=== PATIENT | female | born 1990 | race Caucasian/White ===

== ENCOUNTER 2016-04-13 05:17 | Inpatient (IN) | payer MEDICAID ==
--- OUTSIDE RECORDS SUMMARY | 2016-04-13 05:22 | XMS REPORT | Continuity of Care Document ---
:1990 Author Organization [facility] ([facility]) Address [address] [place] [address] Phone [phone] Care Team Providers Name Role Phone Hyacinth Kyle Primary Care Provider [phone] Source Comments This disclosure is being made pursuant to the Care Everywhere program, applicable federal and state laws, and may not contain all informaitonavailable regarding this patient.[facility] ([facility]) Active Allergies and Adverse Reactions No Known Allergies Current Medications Prescription Sig. Disp. Refills Start Date End Date Status multivitamin with Active minerals PO ondansetron 8 mg tablet Take 8 mg by mouth Active every 8 hours as needed. Active Problems Problem Noted Date Obesity affecting 11/28/2015 Abnormal maternal serum screening test 11/28/2015 Currently Estimated Date of Delivery Comments Yes 04/24/2016 Based on Ultrasound Most Recent Encounters Date Type Specialty Providers Description 03/06/2016 Office Visit Maternal Chief Comp: Patient Medicine Reported Reason For Visit 01/16/2016 Office Visit Maternal Dacia Anderson Dx: Abnormal Medicine DO maternal serum screening test (Primary Dx) 01/16/2016 Hospital Encounter Obstetrics Dacia Anderson Dx: Abnormal DO maternal serum screening test Social History Tobacco Use Types Packs/Day Years Used Date Former Smoker Smokeless Tobacco: Never Used Alcohol Use Drinks/Week oz/Week Comments No Last Filed Vital Signs Vital Sign Reading Time Taken Blood Pressure 150/78 11/22/2015 10:18 AM CDT Pulse - - Temperature 34.8 C (94.6 F) 11/22/2015 10:18 AM CDT Respiratory Rate - - Height 1.65 m (5' 4.96") 11/22/2015 10:18 AM CDT Weight 126.1 kg (278 lb) 11/22/2015 10:18 AM CDT Body Mass Index 46.32 11/22/2015 10:18 AM CDT Oxygen Saturation - - Plan of Care Health Maintenance Due Date Last Done Comments Hepatitis B Vaccine (1 of 3 - Primary Series) 1990 HPV Vaccine (1 of 3 - Female/Unknown 3 Dose Series) 05/09/2002 Tdap Vaccine 05/09/2002 Cervical Cancer Screening 05/09/2009 Lipid Disorder Screening 05/09/2009 MMR Vaccine 05/09/2009 Td Vaccine 05/09/2009 Varicella Vaccine (1 of 2 - Adult - No Evidence of 05/09/2009 Immunity) Influenza Vaccine: Seasonal (#1) 09/17/2015 Results from Last 3 Months SOFTWARE TEST TECHNICIAN/ DIAGNOSIS ULTRASOUND (01/16/2016 1:38 PM) Narrative Obstetric Ultrasound Report Limited Scan Referral from: Dr. Ronak Storey [facility] [address] Department of Obstetrics & Gynecology [place] [address] [place], [place] OB Clinic IVF/ Endocrine PATIENT INFORMATION: Name: VALE VASQUEZMR#: [id number] Age:25 y/oExam Date: 01/16/2016 :1990 Visit #: 3 LMP:Not Available Location: Diagnosis & Treatment Unit # Fetuses: 1 INDICATION:AFP 5.12 MoM. Negative CF testing. Declined amniocentesis. Obesity (BMI=46). Growth and complete anatomy. DATING: Assigned GA GA by LMPGA by US (JAMARI)JAMARI NA 25 5/7 wks 25 6/7 wks 04/24/16 BIOMETRY: BPD: 59.4 mm24 2/7 wksHC:235.9 mm 25 4/7 wks(25%) (9%) Femur: 50.9 mm27 2/7 wksAC:218.9 mm 26 2/7 wks(53%) (73%) EFW: 949 gms2 lbs 1 oz (67%) Lat Ventricles: 7.2 mm Heart Rate: 144 bpm FL/AC:0.23 FL/BPD: 0.86 PRESENTATION/CORD/PLACENTA/FLUID/CERVIX: Presentation: Cephalic Placenta: Posterior.There Is No Evidence Of Placenta Previa. Amniotic Fluid: Maximum Vertical Pocket=47 mm.Subjective AF Volume : Normal. (LBK=257 mm) ANATOMICAL SURVEY: Normal ------ Lateral Ventricles Profile Four Chamber ViewRVOT LVOT IVC SVC Diaphragm Ventral Wall Stomach Kidney - LeftKidney - Right BladderHand - Left Foot - LeftFoot - Right Abnormal -------- None identified TARGETED CARDIAC: IVC: Normal SVC: Normal EFW Summary Table Exam DateFetus #EFW Percentile ------ - 01/16/16 1 66980 % 16289 % 260 % AMNIOTIC FLUID VOLUME: NORMALTotal AUGUSTINA: 123 mm.Subjective AF Volume: Normal. Maximum Vertical Pocket:47 mm CERVIX: Suboptimal visualization COMMENTS: I attest to having personally viewed the images and my comments and impression are as follows: The exam was limited to growth, fluid and limited anatomy. IUP consistent with given JAMARI. Appropriate amniotic fluid. The anatomical survey was completed on today's ultrasound. Follow up at 30-32 weeks to check growth. Consultation: As you know, Vale Vasquez is a 25 y.o. currently at 25w6d gestation. She had been referred initally due to elevated AFP on serum screening - 5.12 MoM. Her is complicated by maternal class III obesity. Low risk serum screening - DSR and T18 < 1:99,000. She presented to the Diagnosis and Treatment Unit at the [facility] several weeks ago for genetics consultation, detailed anatomic survey and MFM consultation.At that time, no congenital anomalies were detected.She was counseled that the most common etiologies of an elevated MSAFP include open neural tube defects, anterior abdominal wall defects, placental abnormalities, bleeding in or incorrect dating. She was informed that an isolated finding of elevated MSAFP can be associated with labor, intrauterine growth restriction and preeclampsia based upon a subclinical to maternal hemorrhage and poor placentation. Given these risks, the patient was recommended to have routine care with surveillance for these potential complications. Her repeat US today was again limited by maternal habitus; however, no structural anomalies were detected. The patient again declined invasive testing. Given the significant MSAFP elevation, I recommend q 4 week ultrasounds for growth and to further assess anatomy. In addition, close follow up of maternal blood pressures as well as NSTs/BPPs in the later third trimester are appropriate. I also recommend she take a low dose aspirin daily for preeclampsia prevention. After relaying the ultrasound results to the patient, I spent an additional 10 minutes with the patient reviewing the follow up plan and recommendations with greater than 50% of that time used in direct counseling and coordination of care. Dr. Dacia Anderson MD ([id number]) Clinical Systems Educator: Michell Rodgers RDMS,RVT Procedure Note Jaskaran, Incoming Imaging Results - ThuJan 16, 2016 1:40 PM PUMPING SUPERVISOR Obstetric Ultrasound Report Limited Scan Referral from: Dr. Ronak Storey [facility] [address] Department of Obstetrics &[place] [address] [address] [place], [place] OB Clinic IVF/ Endocrine PATIENT INFORMATION: Name: VALE VASQUEZ MR#: [id number] Age: 25 y/o Exam Date: 01/16/2016 : 1990 Visit #: 3 LMP: Not Available Location: Diagnosis & Treatment Unit # Fetuses: 1 INDICATION: AFP 5.12 MoM. Negative CF testing. Declined amniocentesis. Obesity (BMI=46). Growth and complete anatomy. DATING: Assigned GA GA by LMP GA by US (JAMARI) JAMARI NA 25 5/7 wks 25 6/7 wks 04/24/16 BIOMETRY: BPD: 59.4 mm 24 2/7 wks HC: 235.9 mm 25 4/7 wks(25%) (9%) Femur: 50.9 mm 27 2/7 wks AC: 218.9 mm 26 2/7 wks(53%) (73%) EFW: 949 gms 2 lbs 1 oz (67%) Lat Ventricles: 7.2 mm Heart Rate: 144 bpm FL/AC: 0.23 FL/BPD: 0.86 PRESENTATION/CORD/PLACENTA/FLUID/CERVIX: Presentation: Cephalic Placenta: Posterior. There Is No Evidence Of Placenta Previa. Amniotic Fluid: Maximum Vertical Pocket=47 mm. Subjective AFVolume: Normal. (NQA=363 mm) ANATOMICAL SURVEY: Normal ------ Lateral Ventricles Profile Four Chamber View RVOT LVOT IVC SVC Diaphragm Ventral Wall Stomach Kidney - Left Kidney - Right Bladder Hand - Left Foot - Left Foot - Right Abnormal -------- None identified TARGETED CARDIAC: IVC: Normal SVC: Normal EFW Summary Table Exam Date Fetus # EFW Percentile --------- ------- ---- 01/16/16 1 949 67 % 12/19/15 1 468 49 % 11/22/15 1 260 % AMNIOTIC FLUID VOLUME: NORMAL Total AUGUSTINA: 123 mm. Subjective AF Volume: Normal. Maximum Vertical Pocket: 47 mm CERVIX: Suboptimal visualization COMMENTS: I attest to having personally viewed the images and my comments and impression are as follows: The exam was limited to growth, fluid and limited anatomy. IUP consistent with given JAMARI. Appropriate amniotic fluid. The anatomical survey was completed on today's ultrasound. Follow up at 30-32 weeks to check growth. Consultation: As you know, Vale Vasquez is a 25 y.o. currently at 25w6d gestation. She had been referred initally due to elevated AFP on serum screening - 5.12 MoM. Her is complicated by maternal classIII obesity. Low risk serum screening - DSR and T18 < 1:99,000. She presented to the Diagnosis and Treatment Unit at the [facility] several weeks ago for genetics consultation, detailed anatomic survey and MFM consultation. At that time, no congenital anomalieswere detected. She was counseled that the most common etiologies of an elevated MSAFP include open neural tube defects, anterior abdominalwall defects, placental abnormalities, bleeding in or incorrect dating. She was informed that an isolated finding of elevated MSAFP can be associated with labor, intrauterine growth restriction and preeclampsia based upon a subclinical to maternal hemorrhage and poor placentation. Given these risks, the patient was recommended to have routine care with surveillance for these potential complications. Her repeat US today was again limited by maternal habitus; however, no structural anomalies were detected. The patient again declined invasive testing. Given the significant MSAFP elevation, I recommend q 4 week ultrasounds for growth and to further assess anatomy. In addition,close follow up of maternal blood pressures as well as NSTs/BPPs in the later third trimester are appropriate. I also recommend she take a low dose aspirin daily for preeclampsia prevention. After relaying the ultrasound results to the patient, I spent an additional 10 minutes with the patient reviewing the follow up plan and recommendations with greater than 50% of that time used in direct counseling and coordination of care. Dr. Dacia Anderson MD ([id number]) Clinical Systems Educator: Michell Rodgers RDMS,RVT
[2016-04-13] MEDS: RINGERS SOLUTION,LACTATED 1,000 ML IV PRN ×3 (06:00→10:05)
[2016-04-13] MEDS ORDERED: DEXTROSE 5%-LACTATED RINGERS 1,000 ML IV PRN ×2 (06:03→07:25)
--- OUTSIDE RECORDS SUMMARY | 2016-04-13 06:06 | XMS REPORT | Continuity of Care Document ---
:1990 Author Organization [facility] ([facility]) Address [address] [place] [address] Phone [phone] Care Team Providers Name Role Phone Hyacinth Kyle Primary Care Provider [phone] Source Comments This disclosure is being made pursuant to the Care Everywhere program, applicable federal and state laws, and may not contain all informaitonavailable regarding this patient.[facility] ([facility]) Active Allergies and Adverse Reactions No Known [...] (#1) 09/17/2015 Results from Last 3 Months EFFICIENCY CLERK/ DIAGNOSIS ULTRASOUND (01/16/2016 1:38 PM) Narrative Obstetric Ultrasound Report Limited Scan Referral from: Dr. Ronak Storey [facility] [address] Department of Obstetrics & Gynecology [place] [address] [place], [place] OB Clinic IVF/ Endocrine PATIENT INFORMATION: Name: VALE VASQUEZMR#: [id number] Age:25 y/oExam Date: 01/16/2016 :1990 Visit #: [...] Vertical Pocket=47 mm.Subjective AF Volume : Normal. (EST=478 mm) ANATOMICAL SURVEY: Normal ------ Lateral Ventricles Profile Four Chamber ViewRVOT LVOT IVC SVC Diaphragm Ventral Wall Stomach Kidney - LeftKidney - Right BladderHand - Left Foot - LeftFoot - Right Abnormal -------- None identified TARGETED CARDIAC: IVC: Normal SVC: Normal EFW Summary Table Exam DateFetus #EFW Percentile ------ - 01/16/16 1 90414 % 33415 % 260 % AMNIOTIC FLUID VOLUME: NORMALTotal [...] the Diagnosis and Treatment Unit at the [facility] several weeks ago for genetics [...] of care. Dr. Dacia Anderson MD ([id number]) Pole Peeler: Michell Rodgers RDMS,RVT Procedure Note Jaskaran, Incoming Imaging Results - ThuJan 16, 2016 1:40 PM [facility] Obstetric Ultrasound Report Limited Scan Referral from: Dr. Ronak Storey [facility] [address] Department of Obstetrics &[place] [address] [address] [place], [place] OB Clinic IVF/ Endocrine PATIENT INFORMATION: Name: VALE VASQUEZ MR#: [id number] Age: 25 y/o Exam Date: 01/16/2016 : [...] Maximum Vertical Pocket=47 mm. Subjective AFVolume: Normal. (VNL=468 mm) ANATOMICAL SURVEY: Normal ------ Lateral Ventricles [...] the Diagnosis and Treatment Unit at the [facility] several weeks ago for genetics consultation, detailed [...] of care. Dr. Dacia Anderson MD ([id number]) Pole Peeler: Michell Rodgers RDMS,RVT
[2016-04-13] MEDS ORDERED: OXYTOCIN/DEXTROSE 5%-WATER 30 UNITS/500 ML BAG IV ONE (06:12)
[2016-04-13 06:24] LABS: Hematocrit 39.5 % (37.0-47.0); Hemoglobin 13.2 gm/dL (12.5-16.0); Mean Cell Volume 81.6 fl (78-100); Mean Corpuscular Hemoglobin 27.3 pg (27-31); Mean Corpuscular Hgb Conc 33.4 g/dl (32-36); Mean Platelet Volume 10.9 fl (6.0-9.5); Neutrophil % 59.7 % (42-75.0); Platelet Count 252 K/mm3 (150-450); Red Blood Count 4.84 M/mm3 (4.2-5.4); Red Cell Distribution Width 13.2 % (11.5-14.0); White Blood Count 13.4 K/mm3 (4.0-10.5)
[2016-04-13 06:39] LABS: Random Urine Total Protein 76.7 mg/dL (0-12)
[2016-04-13 06:40] LABS: Albumin * 2.4 gm/dl (3.4-5.0); Anion Gap 15.6 mmol/L (6.8-13.8); BUN/Creatinine Ratio 12.9 (9.0-21.6); Bilirubin, Total 0.2 mg/dL (0.0-1.1); Ca. Corrected For Albumin 10.7 mg/dL (8.4-10.2); Calcium * 9.7 mg/dL (7.9-10.9); Carbon Dioxide 23.3 mmol/L (24-32.6); Potassium 3.9 mmol/L (3.4-4.6); Total Protein 6.9 gm/dL (6.2-8.2)
[2016-04-13] MEDS: DEXTROSE 5%-LACTATED RINGERS 1,000 ML IV PRN ×3 (08:30→14:10)
[2016-04-13] MEDS ORDERED: LIDOCAINE HCL 50 ML VIAL PERI PRN (08:47)
[2016-04-13] MEDS ORDERED: ONDANSETRON HCL/PF 2 MG/ML VIAL IV PRN ×2 (08:47→09:21)
--- NOTE | 2016-04-13 08:47 | PN ---
Progess Note - Interim Narrative: 04/13/16 08:43 Patient rating her contractions 8/10. Saw flashes of light 1 currently without any symptoms. Vital signs stable. Pitocin at 6 mu/min. FHT: 130 baseline, reassuring Contractions q 1-5 min, with couplets Cervix: 4/80/-2, SROM at 0500 clear fluid Impression: Intrauterine at 38-5/7 weeks in labor. Preeclampsia with occasional blood pressure in severe range. Plan: Continue augmentation of labor. Epidural when necessary. Monitor I/O's closely. Low threshold for starting magnesium sulfate.
[2016-04-13] MEDS ORDERED: NALOXONE HCL 1 MG/1 ML SYRG IV PRN (09:21)
[2016-04-13] MEDS ORDERED: fentaNYL CITRATE/PF 50 MCG/ML AMPUL IT SCH (09:30)
--- NOTE | 2016-04-13 09:56 | OR ---
Anesthesia Procedure Note - Anesthesia Procedure Note Narrative: Vital Signs - Last Taken Temp 37.2 C 04/13/16 09:23 Pulse 83 04/13/16 09:23 Resp 18 04/13/16 09:23 BP 147/87 04/13/16 09:23 Pulse Ox 98 04/13/16 09:23 04/13/16 09:55 ANESTHESIA PROCEDURE NOTE Date of Procedure: 04/13/2016 Time of procedure: 11 15. Performed by: Marco Wilkerson CRNA Home Health Travel Pt: None. Preprocedure diagnosis: Active labor. Post procedure diagnosis: Same. Procedure: Insertion of labor epidural. Indications: The patient is a 25 -year-old prima para female in active labor requesting labor epidural for pain management. Findings: See below. Details of the procedure: The patient was placed in a sitting position. Back was prepped with DuraPrep. Patient was then draped in a sterile fashion. Lidocaine 1% was infiltrated to the skin and subcutaneous tissues at the level of the L3 4 interspace. The epidural space was identified using a 18-gauge Tuohy needle with [id number] technique. 20 mcg fentanyl was given intrathecally using a 27 ga. spinal needle. Epidural catheter was inserted without difficulty. Negative test dose was elicited using 5 mL of 1.5% preservative-free lidocaine plus epinephrine 1 200,000. The epidural catheter was then taped and secured in place. EBL: Minimal. Fluids: N/A. Specimen: N/A. Post procedure condition: The patient tolerated the procedure well. No complications were noted. Thank you for this consultation. Hernandez CRNA
[2016-04-13] MEDS ORDERED: TERBUTALINE SULFATE 1 MG/ML VIAL ONE (10:03)
[2016-04-13] MEDS ORDERED: TERBUTALINE SULFATE 1 MG/ML VIAL SC ONE (10:05)
[2016-04-13] MEDS: BUPIVACAINE HCL/0.9 % NACL/PF 250 ML EP PRN ×2 (10:48→19:12)
--- NOTE | 2016-04-13 13:20 | PN ---
Progess Note - Interim Narrative: 04/13/16 13:15 Patient comfortable with epidural. No headache, visual changes, or epigastric pain Vital signs stable. BP's 120-150's/60-80's Pitocin at 6 mu/min. FHT: 140 baseline, reassuring Contractions q 2-3 min Cervix: 4/90/-2 Impression: Intrauterine at 38 4/7 weeks in labor Plan: Continue present plan. We'll start on ampicillin 2 g if undelivered by 1700, then 1 g IV every 4 hours until delivery.
[2016-04-13] MEDS ORDERED: AMPICILLIN SODIUM 2,000 MG in NORMAL SALINE 100 ML IV ONE (18:00)
[2016-04-13] MEDS: AMPICILLIN SODIUM 1,000 MG in NORMAL SALINE 100 ML IV SCH (21:37)
[2016-04-14] MEDS: RINGERS SOLUTION,LACTATED 1,000 ML IV PRN ×2 (04:03→06:50)
[2016-04-14] MEDS: BUPIVACAINE HCL/0.9 % NACL/PF 250 ML EP PRN (04:15)
[2016-04-14] MEDS: AMPICILLIN SODIUM 1,000 MG in NORMAL SALINE 100 ML IV SCH (05:28)
[2016-04-14] MEDS ORDERED: RINGERS SOLUTION,LACTATED 1,000 ML IV PRN (06:13)
--- NOTE | 2016-04-14 06:19 | PN ---
Progess Note - Interim Narrative: 04/14/16 06:15 Patient fairly comfortable with epidural Vital signs stable. Pitocin at 20 mu/min. FHT:150 baseline, reassuring Contractions q 2-3 min Cervix: 6/100/-2 with large caput. No cervical change in over 14 hours despite multiple position changes and maximum pitocin augmentation Impression: Intrauterine at 38-5/7 weeks arrest of dilation, prolonged ruptured membranes, morbid obesity, elevated AFP Plan: Risks/benefits/alternatives to section discussed with patient in detail. All questions answered. We'll proceed with primary low transverse section for arrest of dilation.
[2016-04-14] MEDS ORDERED: ceFAZolin SODIUM 3 GM in DEXTROSE 5 % IN WATER 100 ML IV ONE ×2 (06:30)
[2016-04-14] MEDS: OXYTOCIN 20 UNITS in RINGERS SOLUTION,LACTATED 1,000 ML IV ONE ×2 (07:34→07:40)
[2016-04-14] MEDS ORDERED: SENNOSIDES 8.6 MG TABLET PO PRN (08:50)
[2016-04-14] MEDS ORDERED: SIMETHICONE 80 MG TAB.CHEW PO PRN (08:50)
[2016-04-14] MEDS ORDERED: ONDANSETRON HCL/PF 2 MG/ML VIAL IV PRN (08:50)
[2016-04-14] MEDS ORDERED: oxyCODONE HCL/ACETAMINOPHEN 1 TAB TABLET PO PRN (08:50)
[2016-04-14] MEDS ORDERED: BISACODYL 10 MG SUPP.RECT RC PRN (08:50)
--- NOTE | 2016-04-14 08:50 | OR ---
Operative Report - Dictated Report Narrative: Pre Operative Diagnosis: 38-5/7 week intrauterine , arrest of dilation , preeclampsia, morbid obesity, elevated AFP Post Operative Diagnosis: Same. Procedure Preformed: Primary Low Transverse Section Surgeon: Apolinar Storey DO Labor And Employment Paralegal: None Anesthesia: Spinal Estimated Blood Loss: 250 mL Urine Output: 75 mL Fluids Given: Avitene 100 mL Drains: Flood to gravity Surgical Complications: None Specimens: Placenta to pathology Findings: Male in cephalic presentation born at 0738 on 04/13/2015 with Apgars 8 and 9, weighing 3128 g. Extensive molding and caput of head. Normal uterus, tubes, ovaries. Indication: 25 year old 1 para 0 with preeclampsia, elevated AFP, and morbid obesity presented to labor and delivery with spontaneous rupture of membranes in early labor progressed to 6 cm and failed to make further change despite over 16 hours of maximum Pitocin augmentation and multiple position changes. Technique: The patient was taken to the operating room and placed in dorsal supine position with a left lateral tilt. After adequate spinal anesthesia, flood catheter insertion,SCDs placed, and 3 g of Ancef given preoperatively, the abdominal cavity was entered via a modified Albert-Iyer incision. Two rolled laps were placed in the pericolic gutters on either side of the uterus. A transverse incision was made in the lower uterine segment and extended laterally and upwardly with digital traction. Clear fluid was noted upon amniotomy. The infant was delivered easily. The cord was clamped and cut and was handed off to awaiting peditrician. The placenta was allowed to deliver spontaneously. The uterus was cleared of clot and debris. Uterine incision was closed with 0 Vicryl using a running locked stitch. A second imbricating layer was placed. Excellent hemostasis was noted. Rolled laps were removed from the abdominal cavitiy. The peritoneum was closed with a running 3-0 Monocryl. The same suture was used to approximate the rectus and pyramidalis muscles. The fascia was closed with a running 0 Vicryl. The subcutaneous layer was closed with a running 3-0 Monocryl. The same suture was used to approximate the subdermal layer. The skin was closed with a running 4- 0 Monocryl and Exophin adhesive dressing. Sponge, lap, needle, and instrument count were correct x 2. Disposition: The patient was transferred to post anesthesia care unit in good condition History for MU Definition: * The number of deliveries resulting in a live the patient experienced prior to current hospitalization * The previous delivery of live twins or any live multiple gestation is considered one live event. *If primagravida or nulliparous is documented select zero for the number of previous live births. Live Events: 0
[2016-04-14] MEDS: oxyCODONE HCL/ACETAMINOPHEN 1 TAB TABLET PO PRN ×3 (09:24→22:00)
[2016-04-14] MEDS: IBUPROFEN 800 MG TABLET PO PRN ×3 (09:24→22:00)
[2016-04-14] MEDS: DOCUSATE SODIUM 100 MG CAPSULE PO SCH ×2 (13:16→20:57)
[2016-04-14] MEDS: ENOXAPARIN SODIUM 40 MG/0.4 ML SYRG SC SCH (15:52)
--- NOTE | 2016-04-15 02:36 | PN ---
Subjective - Date and Time Seen Date: 04/15/16 Time: 02:33 Objective - Vitals Vitals: Last Vital Signs Temp 36.5 C 04/15/16 00:00 Pulse 100 04/15/16 00:00 Resp 18 04/15/16 00:00 BP 101/59 04/15/16 00:00 Pulse Ox 95 04/15/16 00:00 Patient denies complaints. Tolerating regular diet. Pain well controlled. Lochia wnl. BPs within normal limits, urine output doubling Abdomen - soft, appropriately tender Incision - clean, dry, intact Uterus - firm, at umbilicus -1 No calf tenderness DTR-2/4 Impression: Post op day #1 s/p primary section. Preeclampsia- resolving, morbid obesity Plan: Increase activity, DC Caputo, continue to monitor for preeclampsia signs/ symptoms Cauti Physician Documentation - Urinary Catheter Management Urethral (Caputo) Date of Insertion: 04/13/16 Time of Insertion: 10:08
[2016-04-15] MEDS: oxyCODONE HCL/ACETAMINOPHEN 1 TAB TABLET PO PRN ×3 (04:29→19:53)
[2016-04-15] MEDS: IBUPROFEN 800 MG TABLET PO PRN ×3 (04:30→19:52)
[2016-04-15] MEDS: DOCUSATE SODIUM 100 MG CAPSULE PO SCH ×2 (08:39→20:10)
[2016-04-15] MEDS: ENOXAPARIN SODIUM 40 MG/0.4 ML SYRG SC SCH (15:28)
[2016-04-16] MEDS: IBUPROFEN 800 MG TABLET PO PRN ×2 (04:40→15:57)
--- NOTE | 2016-04-16 07:25 | PN ---
Subjective - Date and Time Seen Date: 04/16/16 Time: 07:24 Objective - Vitals Vitals: Last Vital Signs Temp 37.0 C 04/16/16 00:13 Pulse 73 04/16/16 00:13 Resp 18 04/16/16 00:13 BP 131/61 04/16/16 00:13 Pulse Ox 96 04/16/16 00:13 Patient denies complaints. Ambulating well. Tolerating regular diet. Pain well controlled. Lochia wnl. Abdomen - soft, appropriately tender Incision - clean, dry, intact Uterus - firm, at umbilicus -2 No calf tenderness Impression: Post op day #2 s/p primary section. Preeclampsia-resolved Plan: Continue routine post-operative/ care Cauti Physician Documentation - Urinary Catheter Management Urethral (Caputo) Date of Insertion: 04/13/16 Time of Insertion: 10:08 Date of Removal: 04/15/16 Time of Removal: 02:30
[2016-04-16] MEDS: DOCUSATE SODIUM 100 MG CAPSULE PO SCH ×2 (09:49→21:28)
[2016-04-16] MEDS: oxyCODONE HCL/ACETAMINOPHEN 1 TAB TABLET PO PRN (15:57)
[2016-04-16] MEDS: ENOXAPARIN SODIUM 40 MG/0.4 ML SYRG SC SCH (15:57)
[2016-04-17] MEDS: oxyCODONE HCL/ACETAMINOPHEN 1 TAB TABLET PO PRN ×2 (03:44→09:21)
[2016-04-17] MEDS: IBUPROFEN 800 MG TABLET PO PRN (03:44)
[2016-04-17 08:56] VITALS: BP 136/82
--- NOTE | 2016-04-17 09:03 | PN ---
Subjective - Date and Time Seen Date: 04/17/16 Time: 09: Objective - Vitals Vitals: Last Vital Signs Temp 36.6 C 04/17/16 08:55 Pulse 71 04/17/16 08:55 Resp 12 04/17/16 08:55 BP 136/82 04/17/16 08:55 Pulse Ox 98 04/17/16 08:55 Patient denies complaints. Ambulating without difficulty. Tolerating regular diet. Pain well controlled. Lochia wnl. Abdomen - soft, appropriately tender Incision - clean, dry, intact Uterus - firm, at umbilicus -3 No calf tenderness Impression: Post op day #3 s/p primary section. Preeclampsia-resolved Plan: Routine discharge instructions. Preeclampsia precautions Cauti Physician Documentation - Urinary Catheter Management Urethral (Caputo) Date of Insertion: 04/13/16 Time of Insertion: 10:08 Date of Removal: 04/15/16 Time of Removal: 02:30
[2016-04-17] MEDS: DOCUSATE SODIUM 100 MG CAPSULE PO SCH (09:19)
== END 2016-04-17 11:50 | disposition home or self-care (01) | DRG 765 ==
LOC: OBCLINIC 05:17 → OB 06:02
PROVIDERS: ADMIT Obstetrics & Gynecology; ATTEND Obstetrics & Gynecology
PROC: 4A1H7CZ Monitoring of Products of Conception, Cardiac Rate, Via Natural or Artificial Opening (ICD-10-PCS; 2016-04-14)
PROC: 10D00Z1 Extraction of Products of Conception, Low, Open Approach (ICD-10-PCS; principal; 2016-04-14 07:00)
DX: O14.14 Severe pre-eclampsia complicating childbirth (principal); Z68.43 Body mass index [BMI] 50.0-59.9, adult; O62.0 Primary inadequate contractions; O99.214 Obesity complicating childbirth; E66.01 Morbid (severe) obesity due to excess calories; F81.9 Developmental disorder of scholastic skills, unspecified; Z3A.39 39 weeks gestation of pregnancy; Z37.0 Single live birth; Z79.82 Long term (current) use of aspirin

== ENCOUNTER 2016-11-09 10:50 | Emergency (ER) | payer MEDICAID ==
--- NOTE | 2016-11-09 11:49 | ERNOTE ---
ENT HPI Date of Service: 11/09/16 Time Seen by Provider: 11/09/16 11:20 - Immun/Allergies/Home Medications Immunizations: IMMUNIZATION HX Immunizations Up to Date Yes History of Influenza Vaccine No Allergies/Adverse Reactions: Allergies Allergy/AdvReac Type Severity Reaction Status Date / Time No Known Allergies Allergy Verified 11/09/16 11:00 Home Medications: HOME MEDICATIONS NK [No Home Medication] 11/09/16 [Last Taken Unknown] - History of Present Illness Narrative: Pt presents after awakening with a sore throat. She has had strep throat in the past, usually accompanied by fever. She has no fever today, no nausea, vomiting. Pt was concerned because she has a 7 mo old baby at home. Date (Duration): 11/09/16 Time (Timing): 11:38 Severity: Present: moderate ENT Location: Present: throat Prearrival Treatment: Present: over the counter meds Review of Systems - Review of Systems Constitutional: Absent: fever, chills EYE: Present: no symptoms reported ENT: Present: See HPI, sore throat Respiratory: Present: no symptoms reported Cardiology: Present: no symptoms reported Gastrointestinal/Abdominal: Present: no symptoms reported Genitourinary: Present: no symptoms reported Musculoskeletal: Present: no symptoms reported Skin: Present: no symptoms reported Neurological: Present: no symptoms reported Endocrine: Present: no symptoms reported Hematologic/Lymphatic: Present: no symptoms reported - Patient's Past Medical History Patient History - Medical: No pertinent hx Patient History - Cardiac/Respiratory: No pertinent hx Patient History - Cancer: No Hx of Cancer Patient History - Surgical Procedures: , Ear Tubes Patient History - Other: None - Social History Psych History: Hx of Anxiety, Hx of Depression Smoking Status: Never smoker Have you smoked in the past 12 months: No Alcohol Use: none Drug Use: none - Immunizations Immunizations Up to Date: Yes History of Influenza Vaccine: No Physical Exam - Physical Exam General Appearance: Present: alert, no apparent distress Head Exam: Present: normal inspection Eye Exam: Normal inspection: bilateral Ears, Nose, Throat: Present: normal ENT inspection, normal pharynx. Absent: pharyngeal erythema, pharyngeal swelling, tonsillar exudate Neck: Present: normal inspection Respiratory: Present: no respiratory distress Cardiovascular/Chest: Present: regular rate, rhythm Gastrointestinal/Abdominal: Present: normal bowel sounds Neurological Exam: Present: alert, oriented, normal mood/affect Skin Exam: Present: normal color Lymphatic Exam: Present: no adenopathy ED Progress - Vital Signs Vital Signs: Vital Signs 11/09/16 10:55 Temperature 36.1 C L Pulse Rate 95 Respiratory 12 Rate Blood Pressure 157/101 O2 Sat by Pulse 98 Oximetry - Progress/Reassessment Chief Complaint: Sore Throat Plan - Plan Plan: discharge with salt water or milder listerine gargles, tylenol and ibuprofen OTC. Will await culture to determine if further treatment is warranted Departure Clinical Impression: Pharyngitis - Departure Disposition: Home self-care Condition: Good Additional Instructions: gargle with warm salt water or less irritant Listerine. f/u with PMD or return to the ed if strep culture warrants Referrals: Hyacinth Kyle FNP [Primary Care Provider] -
[2016-11-09 12:19] VITALS: BP 130/88
== END 2016-11-09 12:19 | disposition home or self-care (01) ==
LOC: ER 10:50
DX: J02.9 Acute pharyngitis, unspecified (principal)